=== PATIENT | female | born 1985 ===

== ENCOUNTER 2019-07-09 12:59 | Inpatient (IN) | payer OTHER ==
[~2019-07-09] VITALS: Ht 142.2 cm; Wt 59.0 kg
[~2019-07-09 12:59] MED LIST: FERROUS SU325 ( 65 ) PO; LABETALOL HCL100 MG PO
[2019-07-12] MEDS ORDERED: CIPRO100 MG (08:04)
== END 2019-07-13 15:01 | disposition home or self-care (01) | DRG 741 ==
LOC: O/R 07-12 06:30 → OB/GYN 07-12 06:30 → SURH 07-12 12:56 → OB/GYN 07-12 12:59 → SURH 07-12 13:00 → OB/GYN 07-12 13:09
PROVIDERS: ADMIT Obstetrics & Gynecology Gynecologic Oncology
PROC: 0UT74ZZ Resection of Bilateral Fallopian Tubes, Percutaneous Endoscopic Approach (ICD-10-PCS; 2019-07-12)
PROC: 07BC4ZX Excision of Pelvis Lymphatic, Percutaneous Endoscopic Approach, Diagnostic (ICD-10-PCS; 2019-07-12)
PROC: 0UT94ZZ Resection of Uterus, Percutaneous Endoscopic Approach (ICD-10-PCS; principal; 2019-07-12 13:00)
DX: D06.1 Carcinoma in situ of exocervix (principal); N72 Inflammatory disease of cervix uteri; N94.89 Other specified conditions associated with female genital organs and menstrual cycle; N83.8 Other noninflammatory disorders of ovary, fallopian tube and broad ligament